=== PATIENT | female | born 1975 | race American Indian/Alaskan Native ===

== ENCOUNTER 2020-04-22 12:34 | Observation (INO) | payer OTHER ==
--- NOTE | 2020-04-14 11:40 | Anesthesia Consultation ---
Anesthesia Consult and Med Hx Date of service: 04/16/20 - Airway Anesthetic Teeth Evaluation: Good ROM Head & Neck: Adequate Mental/Hyoid Distance: Adequate Mallampati Class: Class II Intubation Access Assessment: Good - Pre-Operative Health Status ASA Pre-Surgery Classification: ASA3 Proposed Anesthetic Plan: General Nerve Block: TAP - Pulmonary Hx Respiratory Symptoms: Yes SOB: Yes (since diagnosed with COVID 11/2019) - Cardiovascular System Hx Coronary Artery Disease: No (+Cardiac clearance; Had ECHO, NST, Calcium Score) - Central Nervous System Hx Psychiatric Problems: No - Other Systems Hx Cancer: No Hx Obesity: Yes
[2020-04-14 11:48] LABS: Basophils # (Auto) 0.1 K/mm3 (0.0-0.1); Basophils % (Auto) 1.3 % (0.0-1.8); Eosinophils # (Auto) 0.2 K/mm3 (0.0-0.4); Eosinophils % (Auto) 4.5 % (0.0-4.3); Hematocrit 35.2 % (30.3-42.9); Hemoglobin 12.2 gm/dl (10.1-14.3); Lymphocytes # (Auto) 1.5 K/mm3 (1.2-5.4); Lymphocytes % (Auto) 30.8 % (13.4-35.0); Mean Corpuscular HGB Conc 35 % (30-34); Mean Corpuscular Volume 90 fl (79-97); Monocytes # (Auto) 0.5 K/mm3 (0.0-0.8); Platelet Count 257 K/mm3 (140-440); Red Blood Count 3.89 M/mm3 (3.65-5.03); Red Cell Distribution Width 16.1 % (13.2-15.2)
[~2020-04-22 12:34] MED LIST: ACETAMINOPHEN 500 MG TAB PO NR; CELECOXIB 200 MG CAP PO NR; LACTATED RINGERS 1,000 ML IV SCH; MAGNESIUM OXIDE 400 MG TAB PO NR; MIDAZOLAM 2 MG/2 ML INJ IV NR; fentaNYL 100 MCG/2 ML INJ IV NR
[2020-04-22] MEDS ORDERED: HYDROmorphone 1 MG/1 ML INJ IV PRN ×2 (13:17)
[2020-04-22] MEDS ORDERED: ONDANSETRON 4 MG/2 ML INJ IV PRN (13:17)
--- NOTE | 2020-04-22 13:17 | Anesthesia Day of Surgery ---
Anesthesia Day of Surgery - Day of Surgery Patient Examined: Yes Patient H&P Reviewed: Yes Patient is NPO: Yes
[2020-04-22] MEDS ORDERED: BUPIVACAINE-EPINEPHRINE/PF 0.25%-1:200,000 (30 ML) VIAL INFILTRATI ONE ×2 (13:29→13:30)
[2020-04-22] MEDS ORDERED: ceFAZolin/STERILE WATER 2 GM/20 ML SYRINGE IV NR (14:00)
[2020-04-22] MEDS ORDERED: GABAPENTIN 300 MG CAP PO NR (14:00)
[2020-04-22] MEDS ORDERED: MIDAZOLAM 2 MG/2 ML INJ IV NR (14:00)
[2020-04-22] MEDS ORDERED: CELECOXIB 200 MG CAP PO NR (14:00)
[2020-04-22] MEDS ORDERED: fentaNYL 100 MCG/2 ML INJ IV ONE (14:17)
[2020-04-22] MEDS ORDERED: ACETAMINOPHEN 500 MG TAB PO ONE (14:17)
[2020-04-22] MEDS ORDERED: MAGNESIUM OXIDE 400 MG TAB PO ONE (14:17)
--- NOTE | 2020-04-22 14:54 | History and Physical Report ---
History of Present Illness Date of examination: 04/22/20 Date of admission: April 22, 2020 Chief complaint: Symptomatic uterine fibroids History of present illness: 44-year-old -0-0-1 with a history of symptomatic uterine fibroids. The patient has had significant menorrhagia and dysmenorrhea secondary to her fibroids. She has undergone medical therapy with Depo-Lupron to control her vaginal bleeding. The patient elected to undergo definitive surgical m anagement. She had a pelvic ultrasound that demonstrated multiple leiomyoma with an enlarged uterus of approximately 18 cm. Past History Past Medical History: no pertinent history Past Surgical History: tonsillectomy Social history: - Obstetrical History : 1 Para: 1 Hx # Term Pregnancies: 1 Number of Pregnancies: 0 Spontaneous Abortions: 0 Induced : 0 Number of Living Children: 1 Medications and Allergies Allergies Allergy/AdvReac Type Severity Reaction Status Date / Time No Known Allergies Allergy Unverified 04/09/20 14:06 Home Medications Medication Instructions Recorded Confirmed Last Taken Type Multivitamin [Multiple Vitamins] 1 each PO DAILY 04/09/20 04/22/20 04/21/20 08:00 History Active Meds: Active Medications Cefazolin Sodium (Ancef/Sterile Water 2 Gm/20 Ml) 2 gm IV PREOP NR Stop: 04/23/20 13:59 Celecoxib (Celebrex) 400 mg PO PREOP NR Stop: 04/23/20 13:59 Last Admin: 04/22/20 13:25 Dose: 400 mg Documented by: Gabapentin (Gabapentin) 300 mg PO PREOP NR Stop: 04/22/20 23:00 Last Admin: 04/22/20 13:25 Dose: 300 mg Documented by: Hydromorphone HCl (Dilaudid) 0.25 mg IV Q10MIN PRN PRN Reason: Pain, Moderate (4-6) Stop: 04/22/20 23:18 Hydromorphone HCl (Dilaudid) 0.5 mg IV Q10MIN PRN PRN Reason: Pain , Severe (7-10) Stop: 04/22/20 23:18 Lactated Ringer's (Lactated Ringers) 1,000 mls @ 125 mls/hr IV DIRECT DREA Last Admin: 04/22/20 13:05 Dose: 125 mls/hr Documented by: Midazolam HCl (Versed) 2 mg IV PREOP NR Stop: 04/22/20 23:59 Last Admin: 04/22/20 13:35 Dose: 2 mg Documented by: Ondansetron HCl (Zofran) 4 mg IV ONCE PRN PRN Reason: Nausea And Vomiting Review of Systems All systems: negative Genitourinary: vaginal bleeding, pelvic pain - Vital Signs Vital signs: Vital Signs Temp Pulse Resp BP Pulse Ox 98.2 F 88 20 140/97 100 04/14/20 11:10 04/14/20 11:10 04/14/20 11:10 04/14/20 11:10 04/14/20 11:10 Temp Pulse Resp BP Pulse Ox 98.1 F 68 16 128/75 100 04/22/20 13:15 04/22/20 14:21 04/22/20 14:36 04/22/20 14:21 04/22/20 14:21 - Physical Exam Breasts: Positive: deferred Cardiovascular: Regular rate Lungs: Positive: Clear to auscultation Abdomen: Positive: normal appearance Results Result Diagrams: 04/14/20 11:15 All other labs normal. Assessment and Plan - Patient Problems (1) Leiomyoma Current Visit: Yes Status: Acute Plan to address problem: Scheduled for robotic hysterectomy and bilateral salpingectomy (2) Menorrhagia Current Visit: Yes Status: Acute (3) Dysmenorrhea Current Visit: Yes Status: Acute
[2020-04-22] MEDS ORDERED: dexAMETHasone 20 MG/5 ML VIAL ONE (15:00)
[2020-04-22] MEDS ORDERED: ONDANSETRON 4 MG/2 ML INJ ONE (15:00)
[2020-04-22] MEDS ORDERED: NEOMY 40 MG/POLYMYXIN B 200,000 UNITS/ML (GU) AMPULE IR ONE ×2 (15:28→16:44)
[2020-04-22] MEDS ORDERED: propofoL 200 MG/20 ML VIAL IV ONE (15:40)
[2020-04-22] MEDS ORDERED: GLYCOPYRROLATE 0.4 MG/2 ML INJ ONE (15:40)
[2020-04-22] MEDS ORDERED: LIDOCAINE MPF (2%) 20 MG/1 ML VIAL 5 ML ONE (15:40)
[2020-04-22] MEDS ORDERED: fentaNYL 100 MCG/2 ML INJ ONE ×2 (15:40→16:44)
[2020-04-22] MEDS ORDERED: ROCURONIUM 50 MG/5 ML INJ IV ONE (15:40)
[2020-04-22] MEDS ORDERED: NEOSTIGMINE 10MG/10 ML INJ MDV ONE (15:40)
[2020-04-22] MEDS ORDERED: PHENYLEPHRINE/NS 1,000 MCG/10 ML SYRINGE (OR USE) IV ONE (15:40)
[2020-04-22] MEDS ORDERED: SUCCINYLCHOLINE CHLORIDE 200 MG/10 ML INJ MDV ONE (15:40)
[2020-04-22] MEDS ORDERED: HYDROmorphone 1 MG/1 ML INJ ONE (16:05)
[2020-04-22] MEDS ORDERED: SODIUM CHLORIDE 0.9% IRR 1,500 ML BOTTLE IR ONE (16:44)
[2020-04-22] MEDS ORDERED: SODIUM CHLORIDE 0.9% IRRIG SOLN 2000 ML IR ONE (16:44)
[2020-04-22] MEDS ORDERED: ACETAMINOPHEN 325 MG TAB PO PRN (17:16)
[2020-04-22] MEDS ORDERED: ZOLPIDEM 5 MG TAB PO PRN (17:18)
[2020-04-22] MEDS ORDERED: ONDANSETRON 4 MG ODT TAB PO PRN (17:18)
--- NOTE | 2020-04-22 17:23 | Operative Report ---
Operative Report Operative Report: Date of surgery: April 22, 2020 Preoperative diagnoses: Symptomatic uterine fibroids; menorrhagia; dysmenorrhea Postoperative diagnoses: Same as above Procedure: Robotic hysterectomy; bilateral salpingectomy Surgeon: Vannessa Recinos M.D. Business Analytics Intern: Mita Motley Anesthesia: Gen. endotracheal anesthesia Estimated blood loss: 100 mL Pathology: Uterus, leiomyomas, bilateral tubes, cervix Indication: 44-year-old -0-0-1 with a history of symptomatic uterine fibroids. The patient elected to undergo definitive surgical management. Procedure: The patient was taken to the operating room and given general endotracheal anesthesia without complication. She is prepped and draped in a normal sterile fashion. A bivalve speculum was placed in the patient's vagina and a single- tooth tenaculum placed on the anterior lip of the cervix. The uterus was sounded with the uterine sound. A Wikia uterine manipulator was placed in the bivalve speculum was then removed. Attention was then turned to the patient's abdomen where a millimeter supra umbilical skin incision was then made. A Veress needle was placed and peritoneal entry was verified water-filled syringe. Insufflation of the peritoneal cavity was performed with CO2 gas. The 12 mm trocar was then placed under direct visualization. An additional 8 mm trocar was placed on the patient's left and right lateral side just opposite of the supraumbilical trocar. An additional 8 mm right lateral trocar was then placed as the accessory port. The supraumbilical 12 mm trocar site was closed with the Anthony Mccauley device and 0-vicryl suture. The patient was then placed in steep Trendelenburg. The da Lizet robot was then engaged. A fenestrated forcep was placed in arm 2 and a vessel sealer was placed in arm 1. General survey of the abdomen pelvis revealed a markedly enlarged fibroid uterus with multiple leiomyomas. The tubes and ovaries normal in appearance. The surgeon then transferred to the surgical console. The mesosalpinx was then isolated on the right. The vessel sealer was used to coagulate the mesosalpinx which was then transected. The tube was transected from the ovary. The tubo-ovarian ligament was then coagulated and transected. The round ligament was then coagulated and transected also. The vesicouterine peritoneum was then entered from the patient's right side. The uterine vessels were then coagulated with the vessel sealer. The vessels were then transected . Attention was then turned to the patient's left side where the tubo-ovarian ligament and mesosalpinx were again isolated coagulated and transected. The vesical peritoneum was then entered from the left and joined in the midline. Peritoneum was reflected off of the lower uterine segment. Uterine vessels were then coagulated and then transected. The blood supply to the uterus was adequately contained, a solar hot water installer ior colpotomy was made. The V care ring was visualized. Posterior colpotomy was created with the monopolar scissors. The incision was continued circumferentially until anterior colpotomy was made. The cervix and uterus were amputated from the vaginal cuff. The uterus was bivalved in order to facilitate delivery through the vagina. The uterus was then removed along with the tubes bilaterally through the vagina and a warm laparotomy sponge was placed and maintain the pneumoperitoneum. The vaginal cuff was then closed in a running fashion with V lock suture. Irrigation of the pelvis was performed. Hemoblast was applied to the incision. The skin was then reapproximated with 4-0 Monocryl. The tissue was sent to pathology which included the cervix, leiomyomas, bilateral tubes and uterus. The patient was then successfully extubated. She was then taken to the recovery room in stable condition. All sponge laps and needle counts were correct x2.
[2020-04-22] MEDS ORDERED: LACTATED RINGERS 1,000 ML ONE (17:29)
[2020-04-22] MEDS ORDERED: IBUPROFEN 600 MG TAB PO SCH (18:00)
[2020-04-22] MEDS ORDERED: D5W/LACTATED RINGERS 1,000 ML IV SCH (18:00)
--- NOTE | 2020-04-22 18:15 | Post Anesthesia Evaluation ---
- Post Anesthesia Evaluation Patient Participated: Yes Airway Patent: Yes Stable Respiratory Function: Yes Nausea/Vomiting: No Temp > 96.8F: Yes Pain Manageable: Yes Adequeate Hydration: Yes Anesthesia Complications: No Block Receding Appropriately: Yes Patient on Ventilator: No
[2020-04-23] MEDS: KETOROLAC 30 MG/1 ML INJ IV SCH ×2 (01:22→06:10)
[2020-04-23] MEDS ORDERED: ONDANSETRON 4 MG/2 ML INJ IV PRN (04:29)
[2020-04-23 05:28] LABS: Hematocrit 39.8 % (30.3-42.9)
--- NOTE | 2020-04-23 11:21 | Progress Note ---
Assessment and Plan - Patient Problems (1) Leiomyoma Current Visit: Yes Status: Acute Plan to address problem: Patient is doing well Discharge home after tolerating a regular diet (2) Menorrhagia Current Visit: Yes Status: Acute (3) Dysmenorrhea Current Visit: Yes Status: Acute Subjective - Subjective Date of service: 04/23/20 Interval history: The patient reports feeling well. She has ambulated and voided without d ifficulty. Her pain is well controlled. Patient reports: appetite normal, voiding normally, pain well controlled Objective - Vital Signs Latest vital signs: Vital Signs Temp Pulse Resp BP BP Pulse Ox 04/23/20 08:20 98.0 F 74 18 135/79 98 04/23/20 05:25 97.8 F 56 L 20 146/71 97 04/22/20 19:13 97.1 F L 61 12 171/91 98 04/22/20 19:05 12 171/91 04/22/20 18:50 97.4 F L 62 12 168/74 99 04/22/20 18:30 64 12 167/93 99 04/22/20 18:15 61 9 L 158/83 98 04/22/20 18:00 57 L 9 L 159/84 100 04/22/20 17:55 83 14 158/86 100 04/22/20 17:50 71 16 152/74 100 04/22/20 17:45 60 10 L 147/88 100 04/22/20 17:43 97.4 F L 61 16 147/88 100 04/22/20 14:36 16 04/22/20 14:25 16 04/22/20 14:21 68 12 128/75 100 04/22/20 14:16 64 13 130/71 100 04/22/20 14:11 73 14 128/76 100 04/22/20 14:06 71 15 136/73 100 04/22/20 14:01 67 12 132/78 100 04/22/20 13:56 76 14 128/75 98 04/22/20 13:36 20 04/22/20 13:25 20 04/22/20 13:15 98.1 F 82 20 140/88 99 04/22/20 12:30 98.1 F 82 20 140/88 99 Intake and Output 04/22/20 04/23/20 04/23/20 22:59 06:59 14:59 Intake Total 370 480 240 Output Total 1700 400 600 Balance -1330 80 -360 Intake: IV 250 Oral 120 480 240 Output: Urine 1700 400 600 Indwelling Catheter 700 400 600 Uretheral (Leon) 300 Other: Total, Intake Amount 120 240 240 Total, Output Amount 700 400 600 Voiding Method Indwelling Catheter # Voids Indwelling Catheter 3 - Exam Abdomen: Present: normal appearance, soft
--- NOTE | 2020-04-23 11:22 | Discharge Summary ---
Providers - Providers Date of Admission: 04/22/20 17:16 Date of discharge: 04/23/20 Attending physician: LIV RODRIGUEZ Primary care physician: ARTURO HERRERA Hospitalization Reason for admission: other (Uterine fibroids) Procedure: other (Robotic hysterectomy and bilateral salpingectomy) Incision: normal Discharge diagnosis: other (Uterine fibroid) Hospital course: The patient was admitted the day of surgery and underwent a robotic hysterectomy and bilateral salpingectomy. Please see operative note for details of surgery. Postoperative course was uneventful. Condition at discharge: Good Disposition: [id number] TO HOME OR SELFCARE - Discharge Diagnoses (1) Leiomyoma Status: Acute (2) Menorrhagia Status: Acute (3) Dysmenorrhea Status: Acute Plan - Discharge Medications Prescriptions: Ibuprofen [Motrin] 800 mg PO Q8HR PRN #60 tablet PRN Reason: Pain , Severe (7-10) oxyCODONE /ACETAMINOPHEN [Percocet 5/325] 1 tab PO Q6HR PRN #30 tablet PRN Reason: Pain - Provider Discharge Summary Activity: no sex for 6 weeks, no heavy lifting 4 weeks, no strenuous exercise Diet: routine Instructions: routine Additional instructions: [] Smoking cessation referral if applicable(refer to patient education folder for contact #) [] Refer to [facility] Booklet Call your doctor immediately for: * Fever > 100.5 * Heavy vaginal bleeding ( >1 pad per hour) * Severe persistent headache * Shortness of breath * Reddened, hot, painful area to leg or breast * Drainage or odor from incision. * Keep incision clean and dry at all times and follow doctor's instructions regarding bathing/showering Schedule follow-up in 4 weeks - Follow up plan
[2020-04-23 16:38] VITALS: BP 127/76
== END 2020-04-23 19:03 | disposition home or self-care (01) ==
LOC: OR 12:34 → OB 17:16
PROVIDERS: ADMIT Obstetrics & Gynecology; ATTEND Obstetrics & Gynecology
DX: U07.1 COVID-19 (principal); D25.9 Leiomyoma of uterus, unspecified; N92.0 Excessive and frequent menstruation with regular cycle; N94.6 Dysmenorrhea, unspecified
CPT/HCPCS: 36415; 58573; 64450; 84703; 85014; 85018; 85025; 86850; 86900; 86901; 88309; 96361; 96374; 96375; A4217; G0378; J0330; J0690; J1100; J1170; J1885; J2250; J2370; J2405; J2704; J2710; J3010; J7120; J7121; S2900; U0003